=== PATIENT | female | born 1995 | race Caucasian/White ===

== ENCOUNTER 2020-08-04 10:49 | Emergency (ER) | payer OTHER ==
[~2020-08-04] VITALS: Ht 167.6 cm; Wt 47.6 kg
[2020-08-04 11:28] VITALS: BP 101/59
--- NOTE | 2020-08-04 13:05 | NUR ---
CALLED OUT TO LOBBY AND OUTSIDE, NO RESPONSE
--- NOTE | 2020-08-04 13:10 | NUR ---
CALLED OUT TO LOBBY AND OUTSIDE, NO RESPONSE
--- NOTE | 2020-08-04 13:18 | NUR ---
CALLED OUT TO LOBBY AND OUTSIDE, NO RESPONSE
--- NOTE | 2020-08-04 13:18 | NUR ---
PATIENT LEFT WITHOUT BEING SEEN BY DR. CAAL. NO FURTHER CARE PROVIDED FOR PATIENT.
== END 2020-08-04 13:18 | disposition left against medical advice (07) ==
LOC: MED 10:49
DX: R10.9 Unspecified abdominal pain (principal); Z53.21 Procedure and treatment not carried out due to patient leaving prior to being seen by health care provider